=== PATIENT | male | born 1960 | race Caucasian/White ===

== ENCOUNTER 2016-10-31 10:15 | Emergency (ER) | payer OTHER ==
[~2016-10-31] VITALS: Wt 79.0 kg
[2016-10-31] MEDS: KETOROLAC 60 MG INJ IM STA ×2 (11:18→11:21)
[2016-10-31] MEDS ORDERED: KETOROLAC 30 MG INJ IM STA (11:20)
[2016-10-31] MEDS ORDERED: KETOROLAC 15 MG INJ IV STA (11:22)
[2016-10-31 11:36] LABS: ADD SCAN DIFF NO
[2016-10-31 11:38] LABS: BASOPHILS % 0.4 % (0.0-2.0); EOSINOPHILS # 0.2 10^3/ul (0.0-0.5); EOSINOPHILS % 2.1 % (0.0-7.0); HEMATOCRIT 49.6 % (42.0-52.0); HEMOGLOBIN 15.4 g/dl (14.0-18.0); LYMPHOCYTES # 2.4 10^3/ul (0.8-2.9); LYMPHOCYTES % 22.1 % (15.0-51.0); MEAN CORPUSCULAR HEMOGLOBIN 21.8 pg (29.0-33.0); MEAN CORPUSCULAR VOLUME 70.1 fl (82.0-101.0); MEAN PLATELET VOLUME 9.9 fl (7.4-10.4); MONOCYTE # 0.8 10^3/ul (0.3-0.9); MONOCYTES % 7.8 % (0.0-11.0); NEUTROPHIL # 7.1 10^3/ul (1.6-7.5); NEUTROPHILS % 67.2 % (39.0-77.0); PLATELET COUNT 200 10^3/UL (140-415); RED BLOOD COUNT 7.08 10^6/ul (4.70-6.10); RED CELL DISTRIBUTION WIDTH 17.5 % (11.5-14.5); WHITE BLOOD COUNT 10.6 10^3/ul (4.8-10.8)
[2016-10-31 11:49] LABS: ALBUMIN 4.4 g/dl (3.3-4.9)
[2016-10-31 11:50] LABS: POTASSIUM 4.2 mmol/L (3.5-5.1)
[2016-10-31 11:52] LABS: ALBUMIN/GLOBULIN RATIO 1.29; BILIRUBIN,INDIRECT 0.7 mg/dl (0-1.1); BILIRUBIN,TOTAL 0.7 mg/dl (0.2-1.3); CREATININE 1.32 mg/dl (0.61-1.24); TOTAL PROTEIN 7.8 g/dl (6.1-8.1)
[2016-10-31 11:53] LABS: CALCIUM 9.3 mg/dl (8.4-10.2); URIC ACID 7.7 mg/dl (3.1-7.9)
--- NOTE | 2016-10-31 12:38 | RADRPT ---
PROCEDURE: XR Knee. CLINICAL INDICATION: Pain. TECHNIQUE: AP, lateral and tunnel views of the right knee were obtained. The images reviewed on a PACS workstation. COMPARISON: None. FINDINGS: The bones appear intact, with no evidence of fracture, erosion, demineralization, or dislocation. Th e alignment of the femorotibial and patellofemoral joints appears normal. No joint space narrowing i s seen. No evidence of effusion or soft tissue swelling is present. IMPRESSION: Unremarkable examination of the right knee. RPTAT: QQ. .Heather Barcenas MD, MD Date Time Electronically viewed and signed by .Heather Barcenas MD, MD on 10/31/2016 12:37 .F/
--- NOTE | 2016-10-31 12:40 | RADRPT ---
PROCEDURE: XR Ankle. CLINICAL INDICATION: Pain TECHNIQUE: AP, oblique and lateral views of the right ankle were performed. COMPARISON: Right knee series from the same day FINDINGS: Mild soft tissue swelling as well as a joint effusion are present. There may be a nondisplaced, rig ht, distal fibular fracture; continued imaging followup is suggested. The medial malleolus, talus and calcaneus appear intact. IMPRESSION: Mild soft tissue swelling, small joint effusion, and possible, nondisplaced, right distal fibular fr acture; continued imaging followup is suggested. RPTAT: QQ .Heather Barcenas MD, MD Date Time Electronically viewed and signed by .Heather Barcenas MD, MD on 10/31/2016 12:39 .F/
[2016-10-31] MEDS ORDERED: TRAM50TA2 PO (12:48)
[2016-10-31] MEDS ORDERED: PRED20TA PO (12:49)
[2016-10-31] MEDS ORDERED: HYDR-906 PO (12:50)
--- NOTE | 2016-10-31 12:58 | ERD ---
ER Documentation Chief Complaint Date/Time DATE: 10/31/16 TIME: 12:52 Chief Complaint NON TRAUMATIC R KNEE AND R ANKLE PAIN 2 DAYS. HX OF GOUT HPI This 56-year-old male presents with right knee and right ankle pain for last 2 days. He gives a history of gout. Denies any history of injury. Denies any restricted range of motion, weakness, fevers, redness or bleeding. ROS All systems reviewed and are negative except as per history of present illness. Medications Home Meds Active Scripts Hydrocodone/Acetaminophen (Smallwood 5-325 Tablet) 1 Each Tablet, 1 TAB PO Q6H Y for PAIN, #14 TAB Prov:CHAD NAVA MD 10/31/16 Prednisone* (Prednisone*) 20 Mg Tab, 40 MG PO DAILY for 5 Days, TAB Prov:CHAD NAVA MD 10/31/16 Discontinued Scripts Tramadol HCl (Tramadol HCl) 50 Mg Tablet, 50 MG PO Q4 Y for PAIN, #20 TAB Prov:CHAD NAVA MD 10/31/16 PMhx/Soc Medical and Surgical Hx: pt denies Medical Hx, pt denies Surgical Hx Hx Alcohol Use: No Hx Substance Use: No Hx Tobacco Use: No Smoking Status: Never smoker Physical Exam Vitals Vital Signs Date Time Temp Pulse Resp B/P Pulse Ox O2 Delivery O2 Flow Rate FiO2 10/31/16 10:20 98.0 71 20 155/89 98 Physical Exam Const: [] Alert, [id number]. Head: Atraumatic Eyes: Normal Conjunctiva ENT: Normal External Ears, Nose and Mouth. Neck: Full range of motion..~ No meningismus. Resp: Clear to auscultation bilaterally Cardio: Regular rate and rhythm, no murmurs Abd: Soft, non tender, non distended. Normal bowel sounds Skin: No petechiae or rashes Back: No midline or flank tenderness Ext: No cyanosis, or edema. Mild tenderness in the right lateral knee joint right ankle joint. There is no exquisite tenderness in the right distal fibula Neur: Awake and alert Psych: Normal Mood and Affect Result Diagram: 10/31/16 1130 10/31/16 1130 Results 24 hrs Laboratory Tests Test 10/31/16 11:30 Alanine Aminotransferase (ALT/SGPT) 27IU/L Albumin 4.4g/dl Albumin/Globulin Ratio 1.29 Alkaline Phosphatase 85IU/L Anion Gap 21 Aspartate Amino Transf (AST/SGOT) 24IU/L Basophils # 0.010^3/ul Basophils % 0.4% Blood Urea Nitrogen 22mg/dl Calcium Level 9.3mg/dl Carbon Dioxide Level 26mmol/L Chloride Level 104mmol/L Creatinine 1.32mg/dl Direct Bilirubin 0.00mg/dl Eosinophils # 0.210^3/ul Eosinophils % 2.1% Globulin 3.40g/dl Glucose Level 100mg/dl Hematocrit 49.6% Hemoglobin 15.4g/dl Indirect Bilirubin 0.7mg/dl Lymphocytes # 2.410^3/ul Lymphocytes % 22.1% Mean Corpuscular Hemoglobin 21.8pg Mean Corpuscular Hemoglobin Concent 31.0g/dl Mean Corpuscular Volume 70.1fl Mean Platelet Volume 9.9fl Monocytes # 0.810^3/ul Monocytes % 7.8% Neutrophils # 7.110^3/ul Neutrophils % 67.2% Nucleated Red Blood Cells # 0.010^3/ul Nucleated Red Blood Cells % 0.0/100WBC Platelet Count 32388^3/UL Potassium Level 4.2mmol/L Red Blood Count 7.0810^6/ul Red Cell Distribution Width 17.5% Sodium Level 147mmol/L Total Bilirubin 0.7mg/dl Total Protein 7.8g/dl Uric Acid 7.7mg/dl White Blood Count 10.610^3/ul Current Medications Medications (Trade) Dose Ordered Sig/Marly Route PRN Reason Start Time Stop Time Status Last Admin Dose Admin Ketorolac Tromethamine (Toradol) 60 mg ONCE STAT IM 10/31/16 11:03 10/31/16 11:21 DC Ketorolac Tromethamine (Toradol) 30 mg ONCE STAT IM 10/31/16 11:20 10/31/16 11:22 DC Ketorolac Tromethamine (Toradol) 15 mg ONCE STAT IV 10/31/16 11:22 10/31/16 11:23 DC 10/31/16 11:32 Procedures/MDM CBC is normal. CMP shows elevated BUN and creatinine. Uric acid is borderline high. X-ray right knee 3V Interpreted by me: Bones: [No fracture] Joints: [No dislocation] Foreign body: [None] impression have a normal right x-ray X-ray right ankle 3V Interpreted by me: Bones: No appreciable significant fracture. There is a possible nondisplaced fracture noted by the radiologist but patient is nontender in that area. Joints: No dislocation. Impression-normal right ankle x-ray. Repeat x- ray or follow-up recommended Patient was noted to be amatory with minimal pain throughout the ED course. Patient presents with right knee and right ankle pain of uncertain etiology which is nontraumatic. He may have a gout flare or may be tendinitis. There is no evidence to suggest septic arthritis, ostial myelitis, neurologic deficits , DVT. I doubt the findings by the radiologist represent fracture. He should however follow-up with primary doctor possible orthopedist for persistent pain this week. Otherwise recommend ice and he will be discharged home a short course of [place] and prednisone. The patient was stable with no new complaints during the ER course. Clinically, there is no current evidence to suggest meningitis, sepsis, acute abdomen, pneumonia, acute coronary syndrome, pulmonary embolism, or any other emergent condition appearing to require further evaluation or hospitalization. The patient should certainly return for any new or worsening symptoms per the aftercare instructions. They should otherwise follow-up with her primary care doctor for reevaluation this week. Patient has signs of renal insufficiency on CMP and is advised to follow-up with primary care doctor for this as well. Departure Diagnosis: Primary Impression: Ankle pain Laterality: right Chronicity: acute Qualified Code: M25.571 - Acute right ankle pain Additional Impression: Knee pain Laterality: right Chronicity: acute Qualified Code: M25.561 - Acute pain of right knee Condition: Stable Patient Instructions: Arthralgia, Knee Sprain, Renal Insufficiency Additional Instructions: Recommend repeat x-ray in 10-14 days for persistent pain. Pain may be from gout although uric acid only borderline high. Recheck sooner for fevers, redness, new worsening symptoms. CHAD NAVA MD Oct 31, 2016 12:58
[2016-10-31 13:45] VITALS: BP 142/83; PULSE 64; RESP 18; TEMP 98
== END 2016-10-31 13:45 | disposition home or self-care (01) ==
LOC: FTE 10:15
DX: M25.571 Pain in right ankle and joints of right foot (principal); M25.561 Pain in right knee
CPT/HCPCS: 36415; 73562; 73610; 80053; 84560; 85025; 96374; J1885; Z7502